=== PATIENT | male | born 1955 ===

== ENCOUNTER 2016-11-12 17:34 | Emergency (ER) | payer SELFPAY ==
[2016-11-12 17:41] VITALS: BP 153/97; PULSE 101; RESP 18; TEMP 98.3; O2SAT 99
--- NOTE | 2016-11-12 20:27 | ED PDOC ---
HPI: Abdomen Time Seen by Provider: 11/12/16 19:41 Chief Complaint (Nursing): Abdominal Pain Chief Complaint (Provider): Abdominal Pain History Per: Patient History/Exam Limitations: no limitations Onset/Duration Of Symptoms: Days (x2 weeks) Current Symptoms Are (Timing): Constant Context: Travel (went to [facility] in September) Location Of Pain/Discomfort: Diffuse Exacerbating Factors: Food (pain worsens when he eats or drinks) Additional Complaint(s): 19:41 Kenan Hoffmann is a 61 year old male with a history of hypertension, diabetes, and hyperlipidemia that presents the the ED with a chief complaint of diffuse, constant abdominal pain that he has been experiencing for the past two weeks. Patient states that he developed a sore throat, chills, and a fever last night, and that he has experienced weakness and decreased appetite since this morning, although prior to this morning his appetite has been normal. He reports that he has not taken any medication for his pain, and that he goes to [facility]. Patient denies any diarrhea constipation, melena, or hematochezia. His social history includes no smoking or drubs, but he does report that he drinks alcohol occasionally. Of Note: Patient traveled to [facility] for vacation in September, during which he states that he drank more alcohol than he typically does. Past Medical History Reviewed: Historical Data, Nursing Documentation, Vital Signs Vital Signs: Last Vital Signs Temp 98.3 F 11/12/16 17:38 Pulse 101 H 11/12/16 17:38 Resp 18 11/12/16 17:38 BP 153/97 H 11/12/16 17:38 Pulse Ox 99 11/12/16 23:29 - Medical History PMH: Diabetes, HTN, Hypercholesterolemia Denies: HIV, Chronic Kidney Disease - Family History Family History: States: Diabetes, Hypertension - Social History Current smoker - smoking cessation education provided: No Alcohol: Occasional Drugs: Denies - Immunization History Hx Tetanus Toxoid Vaccination: No Hx Influenza Vaccination: Yes Hx Pneumococcal Vaccination: No - Home Medications Home Medications: Ambulatory Orders Medication Instructions Recorded Aspirin [Aspirin Chewable] 81 mg PO DAILY 02/16/16 Atorvastatin Calcium [Lipitor] 10 mg PO DAILY 02/16/16 Lisinopril [Zestril] 10 mg PO ACBL 02/16/16 MetFORMIN [glucOPHAGE] 1,000 mg PO BID 02/16/16 Omeprazole [Prilosec] 40 mg PO DAILY 02/16/16 Amoxicillin/Clavulanate [Augmentin 1 tab PO BID #14 tab 11/12/16 875 MG-125 MG] Dicyclomine [Bentyl] 20 mg PO BID PRN #30 tab 11/12/16 - Allergies Allergies/Adverse Reactions: Allergies Allergy/AdvReac Type Severity Reaction Status Date / Time No Known Allergies Allergy Verified 02/03/15 12:53 Review of Systems ROS Statement: Except As Marked, All Systems Reviewed And Found Negative Constitutional: Positive for: Fever, Chills, Weakness, Other (decreased appetite , mylagias) ENT: Positive for: Nose Discharge (mild), Throat Pain (sore throat) Respiratory: Negative for: Cough Gastrointestinal: Positive for: Abdominal Pain. Negative for: Diarrhea, Constipation, Melena, Hematochezia Physical Exam - Physical Exam Appears: Positive for: Non-toxic, In Acute Distress (in mild painful distress, otherwise well-appearing) Head Exam: Positive for: ATRAUMATIC, NORMOCEPHALIC Skin: Positive for: Warm, Dry Eye Exam: Positive for: EOMI, PERRL ENT: Positive for: Tonsillar Exudate, Tonsillar Swelling (tonsils bilaterally enlarged), Other (tonsils erythematous, moist mucous membranes) Neck: Positive for: Painless ROM, Supple, Trachea Midline Cardiovascular/Chest: Positive for: Regular Rate, Rhythm. Negative for: Murmur Respiratory: Positive for: Normal Breath Sounds. Negative for: Wheezing Gastrointestinal/Abdominal: Positive for: Soft, Tenderness (mild tenderness to palpation), Other (negative Peña's and McBurney's point tenderness). Negative for: Mass, Guarding, Rebound Back: Positive for: Normal Inspection. Negative for: L CVA Tenderness, R CVA Tenderness Extremity: Positive for: Normal ROM. Negative for: Pedal Edema, Deformity Lymphatic: Negative for: Adenopathy (no palpable lymph adenopathy) Neurologic/Psych: Positive for: Alert, Oriented (x3). Negative for: Motor/ Sensory Deficits - Laboratory Results Result Diagrams: 11/12/16 20:40 11/12/16 20:40 - ECG O2 Sat by Pulse Oximetry: 99 (RA) Pulse Ox Interpretation: Normal Medical Decision Making Medical Decision Makin:05 Initial Impression: Tonsillitis and Abdominal Pain, DDx include but not limited to: Colitis vs. Pancreatitis vs. Enteritis vs. Strep vs. Infection vs. UTI Initial Plan: * CT A/P with IV Contrast * CMP * CBC * Blood culture * Glucose * POC * Lipase * Magnesiuim * Phosphorous * Urine dip * Flu Swab * Rapid Strep * Tylenol 975 mg PO * Toradol 15 mg IV * Reevaluation * EXAM: CT Abdomen and Pelvis With Intravenous Contrast. CLINICAL HISTORY: 61 years old, male; Pain; Abdominal pain; Generalized; Additional info: Abd pain TECHNIQUE: Axial computed tomography images of the abdomen and pelvis with intravenous contrast. This CT exam was performed using one or more of the following dose reduction techniques : automated exposure control, adjustment of the mA and/or kV according to patient size, and/ or use of iterative reconstruction technique. Coronal and sagittal reformatted images were created and reviewed. CONTRAST: 95 mL of [id number] administered intravenously. COMPARISON: No relevant prior studies available. FINDINGS: Lower thorax: No acute findings. ABDOMEN: Liver: Mild fatty infiltration. Gallbladder and bile ducts: Gallstones. No ductal dilation. Pancreas: No ductal dilation. No mass. Spleen: No splenomegaly. Adrenals: No mass. Kidneys and ureters: No mass. No hydronephrosis. Stomach and bowel: No definite mural thickening. No obstruction. Appendix: Normal caliber. No inflammation. PELVIS: Bladder: Unremarkable. Reproductive: Mildly enlarged prostate. ABDOMEN and PELVIS: Intraperitoneal space: No significant fluid collection. No free air. Bones/joints: Degenerative changes of hips and spine. No acute fracture. Soft tissues: Unremarkable. Vasculature: Minimal atherosclerotic disease of aorta. No abdominal aortic aneurysm. Lymph nodes: No pathologically enlarged lymph nodes. IMPRESSION: 1. Cholelithiasis. 2. Incidental/non-acute findings are described above. Thank you for allowing us to participate in the care of your patient. Dictated and Authenticated by: Julián Sanchez MD 11/12/2016 11:18 PM Eastern Time ([place] & [place]) Scribe Attestation: Documented by Emy Weiss, acting as a scribe for Renuka Hernandez MD. Provider Scribe Attestation: All medical record entries made by the Scribe were at my direction and personally dictated by me. I have reviewed the chart and agree that the record accurately reflects my personal performance of the history, physical exam, medical decision making, and the department course for this patient. I have also personally directed, reviewed, and agree with the discharge instructions and disposition. Disposition - Clinical Impression Clinical Impression: Tonsillitis, Cholelithiasis, Abdominal pain Counseled Patient/Family Regarding: Studies Performed, Diagnosis, Need For Followup, Rx Given - Disposition Referrals: [facility] [place] [Outside] (CONTINUE DIAZ EVALUACIONES CON GASTROENTEROLOGO) Disposition: Routine/Home Disposition Time: 23:00 Condition: STABLE Additional Instructions: HOANG MEDICAMENTOS A RECETO HOANG TYLENOL O ADVIL PARA DOLOR O FIEBRE Prescriptions: Amoxicillin/Clavulanate [Augmentin 875 MG-125 MG] 1 tab PO BID #14 tab Dicyclomine [Bentyl] 20 mg PO BID PRN #30 tab PRN Reason: abdominal pain Instructions: Gallstones (ED), Tonsillitis (ED), Abdominal Pain (ED) Print Language: MOLDOVAN
[2016-11-12 21:08] LABS: BASO # 0.1 K/uL (0.0-0.2); BASO % 0.7 % (0.0-2.0); EOS % 0.1 % (0.0-4.0); HEMATOCRIT 41.9 % (35.0-51.0); LYMPH # 0.9 K/uL (1.0-4.3); LYMPH % 7.6 % (20.0-40.0); MEAN CELL VOLUME 90.2 fl (80.0-94.0); MEAN CORPUSCULAR HEMOGLOBIN 30.4 pg (27.0-31.0); MEAN CORPUSCULAR HGB CONC 33.8 g/dL (33.0-37.0); MEAN PLATELET VOLUME 8.4 fl (7.2-11.7); MONO # 0.7 K/uL (0.0-0.8); MONO % 5.9 % (0.0-10.0); NEUT # 10.3 K/uL (1.8-7.0); NEUT % 85.7 % (50.0-75.0); PLATELET COUNT 279 K/uL (130-400); RED CELL DISTRIBUTION WIDTH 12.3 % (11.5-14.5)
[2016-11-12 21:24] LABS: ALB/GLOB RATIO 1.2 (1.0-2.1); ALKALINE PHOSPHATASE 109 U/L (38-126); ALT/SGPT 35 U/L (21-72); AST/SGOT 32 U/L (17-59); BILIRUBIN,TOTAL 0.8 mg/dl (0.2-1.3); BLOOD UREA NITROGEN 13 mg/dl (9-20); CALCIUM 9.6 mg/dL (8.4-10.2); CARBON DIOXIDE 24 mmol/L (22-30); CHLORIDE 96 mmol/L (98-107); GFR AFRICAN-AMERICAN > 60; GLUCOSE,RANDOM 118 mg/dL (75-110); LIPASE 103 U/L (23-300); PHOSPHOROUS 2.7 mg/dl (2.5-4.5); POTASSIUM 4.3 MMOL/L (3.6-5.0); SODIUM 141 mmol/l (132-148); TOTAL PROTEIN 8.5 G/DL (6.3-8.2)
[2016-11-12 22:10] LABS: NEUTROPHIL 82 % (42-75); TOTAL CELLS COUNTED 100
[2016-11-12 22:18] LABS: MAGNESIUM 1.8 MG/DL (1.6-2.3)
[2016-11-12] MEDS ORDERED: Iohexol 300 100 ML IJ ONE (22:27)
[2016-11-12] MEDS ORDERED: Sodium Chloride 0.9% 50 ML IV ONE (22:27)
--- NOTE | 2016-11-12 23:18 | CT ---
EXAM: CT Abdomen and Pelvis With Intravenous Contrast. CLINICAL HISTORY: 61 years old, male; Pain; Abdominal pain; Generalized; Additional info: Abd pain TECHNIQUE: Axial computed tomography images of the abdomen and pelvis with intravenous contrast. This CT exam was performed using one or more of the following dose reduction techniques: automated exposure control, adjustment of the mA and/or kV according to patient size, and/or use of iterative reconstruction technique. Coronal and sagittal reformatted images were created and reviewed. CONTRAST: 95 mL of [id number] administered intravenously. COMPARISON: No relevant prior studies available. FINDINGS: Lower thorax: No acute findings. ABDOMEN: Liver: Mild fatty infiltration. Gallbladder and bile ducts: Gallstones. No ductal dilation. Pancreas: No ductal dilation. No mass. Spleen: No splenomegaly. Adrenals: No mass. Kidneys and ureters: No mass. No hydronephrosis. Stomach and bowel: No definite mural thickening. No obstruction. Appendix: Normal caliber. No inflammation. PELVIS: Bladder: Unremarkable. Reproductive: Mildly enlarged prostate. ABDOMEN and PELVIS: Intraperitoneal space: No significant fluid collection. No free air. Bones/joints: Degenerative changes of hips and spine. No acute fracture. Soft tissues: Unremarkable. Vasculature: Minimal atherosclerotic disease of aorta. No abdominal aortic aneurysm. Lymph nodes: No pathologically enlarged lymph nodes. IMPRESSION: 1. Cholelithiasis. 2. Incidental/non-acute findings are described above.
[2016-11-12] MEDS ORDERED: cefTRIAXone (Rocephin) 1 gm Inj ONE (23:30)
== END 2016-11-12 23:46 | disposition home or self-care (01) ==
LOC: H.ER 17:34
DX: K80.20 Calculus of gallbladder without cholecystitis without obstruction (principal); J03.90 Acute tonsillitis, unspecified; E11.9 Type 2 diabetes mellitus without complications; E78.00 Pure hypercholesterolemia, unspecified; I10 Essential (primary) hypertension; Z79.82 Long term (current) use of aspirin; Z79.84 Long term (current) use of oral hypoglycemic drugs

== ENCOUNTER 2017-02-12 06:05 | Day surgery (SDC) | payer SELFPAY ==
[2017-02-05 08:55] VITALS: BMI 33.4
[2017-02-12] MEDS ORDERED: Lactated Ringer's 1,000 ML IV ONE ×3 (07:04→09:24)
[2017-02-12] MEDS ORDERED: Lidocaine 1% Inj (20ml) ONE (07:21)
[2017-02-12] MEDS ORDERED: Bupivacaine 0.5% Inj(30mL) ONE (07:21)
[2017-02-12] MEDS ORDERED: Succinylcholine 200 mg/10 ml Inj IV ONE (07:23)
[2017-02-12] MEDS ORDERED: Propofol 10 mg/ml Inj (20 ML) ONE (07:23)
--- NOTE | 2017-02-12 07:46 | CP.SDSHP ---
Same Day Surgery H & P - History Proposed Procedure: Laparoscopic Cholecystectomy Pre-Op Diagnosis: Cholelithiasis - Previous Medical/Surgical History Cardiac: Hypertension Endocrine/Metabolic: Diabetes - Allergies Allergies: Allergies No Known Allergies Allergy (Verified 02/12/17 06:30) - Physical Exam General Appearance: NAD, WNL Vital Signs: Vital Signs 02/12/17 06:44 Temperature 98.4 F Pulse Rate 66 Respiratory 18 Rate Blood Pressure 117/86 O2 Sat by Pulse 96 Oximetry Mental Status: Alert & Oriented x3 Neuro: WNL Heart: WNL Lungs: WNL GI: WNL - {Optional Preform as Required} Abdomen: WNL - Impression Impression: 61 yo M w/ symptomatic Cholelithaisis here for Lap Annamarie Pt. Evaluated Today:Candidate for Anesthesia & Procedure: Yes - Date & Time Date: 02/12/17 Time: 07:44 Short Stay Discharge - Short Stay Discharge Admitting Diagnosis/Reason for Visit: K80.2 Disposition: HOME/ ROUTINE Medications: oxyCODONE/Acetaminophen [Percocet 5/325 mg Tab] 1 ea PO Q4H PRN #10 tab PRN Reason: Pain, Moderate (4-7) Referrals: Allyson Valles MD [Primary Care Provider] - Jose Roberto Telles MD [Staff Provider] - Follow-up: 1 week Additional Instructions (Diet, Activity): Resume regular diet. Light activities but no heavy lifting >10lbs for 4weeks.
[2017-02-12] MEDS ORDERED: Rocuronium 10 mg/ml (5 ml) ONE (07:52)
[2017-02-12] MEDS ORDERED: Desflurane Inhalation Anesthetic Liq (240 ml) ONE (08:02)
[2017-02-12] MEDS ORDERED: ePHEDrine 50 mg/ml Inj ONE (08:07)
[2017-02-12] MEDS ORDERED: Neostigmine Methylsulfate 2 MG/2 ML ML IV ONE (08:43)
[2017-02-12] MEDS ORDERED: Neostigmine Methylsulfate 3mg/3ml Syringe IV ONE (08:43)
--- NOTE | 2017-02-12 09:27 | PCM.SURG1 ---
Surgeon's Initial Post Op Note - Surgeon's Notes Surgeon: Dr. Telles Immigration Manager: Dr. Mathew PGY2, Dr Morfin PGY1 Type of Anesthesia: General Endo Anesthesia Administered By: Thompson Pre-Operative Diagnosis: Cholelithiasis Operative Findings: same Post-Operative Diagnosis: same Operation Performed: Laparoscopic Cholecystectomy Specimen/Specimens Removed: gallbladder Estimated Blood Loss: EBL {In ML}: 20 Blood Products Given: N/A Drains Used: No Drains Post-Op Condition: Good Date of Surgery/Procedure: 02/12/17 Time of Surgery/Procedure:
[2017-02-12] MEDS ORDERED: Oxycodone/Acetaminophen 5/325 mg Tab PO PRN (09:29)
[2017-02-12] MEDS ORDERED: Oxycodone/Acetaminophen 5/325 mg Tab PO ONE (10:00)
[2017-02-12] MEDS: HYDROmorphone 0.5 mg/0.5 ml ISec IVP PRN ×2 (10:00→10:07)
[2017-02-12 13:38] VITALS: RESP 18; O2SAT 98
[2017-02-12 15:20] VITALS: BP 123/77; PULSE 83; TEMP 98.4
--- NOTE | 2017-02-13 11:02 | CP.SDSHP ---
Same Day Surgery H & P - Allergies Allergies: Allergies No Known Allergies Allergy (Verified 02/12/17 06:30) - Current Medications Current Medications: Home Medication List Medication Instructions Recorded Confirmed Type oxyCODONE/Acetaminophen [Percocet 1 ea PO Q4H PRN #10 tab 02/12/17 Rx 5/325 mg Tab] Short Stay Discharge - Short Stay Discharge Admitting Diagnosis/Reason for Visit: K80.2 Disposition: HOME/ ROUTINE Medications: oxyCODONE/Acetaminophen [Percocet 5/325 mg Tab] 1 ea PO Q4H PRN #10 tab PRN Reason: Pain, Moderate (4-7) Referrals: Jose Roberto Telles MD [Staff Provider] - Allyson Valles MD [Primary Care Provider] - Follow-up: [facility] 2 weeks Additional Instructions (Diet, Activity): Resume regular diet. Light activities but no heavy lifting >10lbs for 4weeks. Call Dr. Telles's office today to schedule an appointment in 2 weeks Progress Note/Discharge Note with Instructions: Abdomen bengin, tolerating po. VSS Stable postop
--- NOTE | 2017-03-19 12:06 | OP ---
PROCEDURE DATE: 02/12/2017 SURGEON: Dr. Telles. PUBLIC SERVICE ADMINISTRATOR: . ANESTHESIA: General, Dr. Mackay. PREOPERATIVE DIAGNOSIS: Cholelithiasis. POSTOPERATIVE DIAGNOSIS: Cholelithiasis. PROCEDURE: Laparoscopic cholecystectomy. DESCRIPTION OF PROCEDURE: With the patient in the supine position, under adequate general anesthesia, the abdomen was prepped and draped in the usual sterile manner. Veress needle puncture was performed at the umbilicus with insufflation to 15 cm water pressure of CO2 and a 10 mm laparoscopic trochar was inserted via an infraumbilical incision. Under direct vision, additional trocars were inserted in the epigastrium and right costal margin. The gallbladder was visualized, it was not acutely inflamed. The gallbladder fundus was grasped and elevated. The infundibulum was grasped and retracted laterally. The cystic duct was identified and dissected. It was cleared down towards the common bile duct and viewed anteriorly and posteriorly. The cystic duct was then triply clipped and divided; anterior and posterior branches of the cystic artery were identified and dissected and then triply clipped and divided and the gallbladder was dissected free of the liver bed using electrocautery. The liver bed was inspected for hemostasis and the dissection was completed. The gallbladder was placed in a specimen retrieval bag and removed via the umbilical port site. Multiple films were identified. The right upper quadrant was irrigated and suctioned. Pneumoperitoneum was released and the trocars were removed. The umbilical port site was closed with a figure of eight fascial suture of 0-Vicryl. All incisions were closed with 4-0 Monocryl subcuticular sutures and Dermabond. The patient tolerated the procedure well and transferred to the recovery room in stable condition. Estimated blood loss for the procedure was 20 mL. Jose Roberto Telles MD MARTINE
== END 2017-02-12 15:20 | disposition home or self-care (01) ==
LOC: H.OPSURG 06:05
PROVIDERS: ATTEND Specialist
DX: K80.20 Calculus of gallbladder without cholecystitis without obstruction (principal); I10 Essential (primary) hypertension

== ENCOUNTER 2017-05-01 13:32 | Emergency (ER) | payer MEDICAID, SELFPAY ==
[2017-05-01 13:32] VITALS: BMI 33.4
[2017-05-01 14:01] VITALS: BP 136/98; PULSE 86; RESP 16; TEMP 97.9; O2SAT 100
--- NOTE | 2017-05-01 14:34 | ED PDOC ---
HPI: Headache Time Seen by Provider: 05/01/17 14:05 Chief Complaint (Nursing): Headache Chief Complaint (Provider): headache History Per: Patient History/Exam Limitations: no limitations Onset/Duration Of Symptoms: Days (4), Persistent, Other Quality: Pressure Associated Symptoms: Blurred Vision (intermittently), Nausea. denies: Photophobia, Vomiting Additional Complaint(s): Headache constant pressure-like, diffuse, since Saturday morning, drinking alcohol more than usual the night before. Pain persists and associated with nausea this morning. Occasionally feels like his vision is blurred. Taking motrin with minimal relief. Intensity has been the same since onset. Denies fever, neck pain/stiffness, focal weakness, unsteady gait, trauma, photophobia, thunderclap headache. PMD [facility] Past Medical History Vital Signs: Last Vital Signs Temp 97.9 F 05/01/17 13:57 Pulse 86 05/01/17 13:57 Resp 16 05/01/17 13:57 BP 136/98 H 05/01/17 13:57 Pulse Ox 100 05/01/17 13:57 - Medical History PMH: Arthritis, Diabetes, HTN, Hypercholesterolemia Denies: HIV, Chronic Kidney Disease - Surgical History Surgical History: Cholecystectomy - Family History Family History: States: Diabetes, Hypertension - Social History Current smoker - smoking cessation education provided: No Alcohol: Social (1/month) Drugs: Denies - Immunization History Hx Tetanus Toxoid Vaccination: No Hx Influenza Vaccination: Yes Hx Pneumococcal Vaccination: No - Home Medications Home Medications: Ambulatory Orders Medication Instructions Recorded Atorvastatin Calcium [Lipitor] 10 mg PO DAILY 02/16/16 Lisinopril [Zestril] 10 mg PO ACBL 02/16/16 MetFORMIN [glucoPHAGE] 1,000 mg PO BID 02/16/16 oxyCODONE/Acetaminophen [Percocet 1 ea PO Q4H PRN #10 tab 02/12/17 5/325 mg Tab] Ondansetron ODT [Zofran ODT] 1 odt PO Q6 PRN #20 odt 05/01/17 - Allergies Allergies/Adverse Reactions: Allergies Allergy/AdvReac Type Severity Reaction Status Date / Time No Known Allergies Allergy Verified 05/01/17 13:57 Review of Systems ROS Statement: Except As Marked, All Systems Reviewed And Found Negative Constitutional: Negative for: Fever, Weakness, Malaise Eyes: Positive for: Vision Change ENT: Negative for: Nose Pain, Nose Congestion Gastrointestinal: Positive for: Nausea. Negative for: Vomiting, Abdominal Pain Neurological: Positive for: Headache. Negative for: Weakness, Numbness, Incoordination, Confusion, Seizures, Altered Mental Status, Dizziness Physical Exam - Reviewed Nursing Documentation Reviewed: Yes Vital Signs Reviewed: Yes - Physical Exam Appears: Positive for: Well, No Acute Distress Head Exam: Positive for: ATRAUMATIC, NORMOCEPHALIC Skin: Positive for: Warm, Dry Eye Exam: Positive for: EOMI, PERRL. Negative for: Conjunctival injection ENT: Negative for: Pharyngeal Erythema, Tonsillar Exudate Neck: Positive for: Painless ROM, Supple Cardiovascular/Chest: Positive for: Regular Rate, Rhythm, Chest Non Tender. Negative for: Murmur Respiratory: Positive for: Normal Breath Sounds. Negative for: Wheezing, Respiratory Distress Gastrointestinal/Abdominal: Positive for: Bowel Sounds, Soft. Negative for: Tenderness Back: Positive for: Normal Inspection. Negative for: L CVA Tenderness, R CVA Tenderness, Vertebral Tenderness Extremity: Positive for: Normal ROM. Negative for: Pedal Edema Neurologic/Psych: Positive for: Alert, staff scientist II-XII (grossly intact), Oriented (x3 ), Cerebellar Tests (normal), Gait (normal). Negative for: Motor/Sensory Deficits, Aphasia, Facial Droop - Laboratory Results Result Diagrams: 05/01/17 14:22 05/01/17 14:22 Interpretation Of Abn Labs: No emergently significant lab abnormalities - ECG ECG: Positive for: Interpreted By Me ECG Rhythm: Positive for: Normal QRS, Normal ST Segment O2 Sat by Pulse Oximetry: 100 Pulse Ox Interpretation: Normal - Progress ED Course And Treament: Accession No. : [id number] Patient Name / ID : LYLE HUGO / [id number] Exam Date : 05/01/2017 14:57:26 ( Approved ) Study Comment : Sex / Age : M / 61Y Creator : Nicolas Agee MD Dictator : Nicolas Agee MD Logging Tractor Operator : Television Cabinet Finisher : Nicolas Agee MD Approver2 : Report Date : 05/01/2017 15:17:24 My Comment : PROCEDURE: CT HEAD WITHOUT CONTRAST. HISTORY: headache nausea h/o htn/dm COMPARISON: None available. TECHNIQUE: Axial computed tomography images were obtained through the head/brain without intravenous contrast. Radiation dose: Total exam DLP = 866 mGy-cm. This CT exam was performed using one or more of the following dose reduction techniques: Automated exposure control, adjustment of the mA and/or kV according to patient size, and/or use of iterative reconstruction technique. FINDINGS: HEMORRHAGE: No intracranial hemorrhage. BRAIN: No mass effect or edema. No atrophy or chronic microvascular ischemic changes. VENTRICLES: Unremarkable. No hydrocephalus. CALVARIUM: Unremarkable. PARANASAL SINUSES: Unremarkable as visualized. No significant inflammatory changes. MASTOID AIR CELLS: Unremarkable as visualized. No inflammatory changes. OTHER FINDINGS: None. IMPRESSION: Normal CT of the Head. Re-evaluation Time: 16:00 Condition: Improved Disposition - Clinical Impression Clinical Impression: Headache Counseled Patient/Family Regarding: Studies Performed, Diagnosis, Need For Followup, Rx Given - Disposition Referrals: [facility] [Outside] [facility] [Outside] ([facility] [place] [facility]) Disposition: Routine/Home Disposition Time: 16:00 Condition: IMPROVED Prescriptions: Ondansetron ODT [Zofran ODT] 1 odt PO Q6 PRN #20 odt PRN Reason: Nausea/Vomiting Instructions: Acute Headache (ED) Print Language: CITIZEN OF [place]
[2017-05-01 14:43] LABS: PARTIAL THROMBOPLASTIN TIME 31.6 Seconds (25.6-37.1)
[2017-05-01 15:00] LABS: ALB/GLOB RATIO 1.4 (1.0-2.1); ALCOHOL SERUM < 10 mg/dl (0-10); ALKALINE PHOSPHATASE 101 U/L (38-126); ALT/SGPT 53 U/L (21-72); AST/SGOT 28 U/L (17-59); BILIRUBIN,TOTAL 0.4 mg/dl (0.2-1.3); BLOOD UREA NITROGEN 10 mg/dl (9-20); CALCIUM 9.3 mg/dL (8.4-10.2); CARBON DIOXIDE 24 mmol/L (22-30); CHLORIDE 104 mmol/L (98-107); GFR AFRICAN-AMERICAN > 60; GLUCOSE,RANDOM 159 mg/dL (75-110); LIPASE 100 U/L (23-300); MAGNESIUM 1.9 MG/DL (1.6-2.3); PHOSPHOROUS 2.8 mg/dl (2.5-4.5); POTASSIUM 4.4 MMOL/L (3.6-5.0); SODIUM 141 mmol/l (132-148); TOTAL PROTEIN 7.9 G/DL (6.3-8.2)
--- NOTE | 2017-05-01 15:18 | CT ---
PROCEDURE: CT HEAD WITHOUT CONTRAST. HISTORY: headache nausea h/o htn/dm COMPARISON: None available. TECHNIQUE: Axial computed tomography images were obtained through the head/brain without intravenous contrast. Radiation dose: Total exam DLP = 866 mGy-cm. This CT exam was performed using one or more of the following dose reduction techniques: Automated exposure control, adjustment of the mA and/or kV according to patient size, and/or use of iterative reconstruction technique. FINDINGS: HEMORRHAGE: No intracranial hemorrhage. BRAIN: No mass effect or edema. No atrophy or chronic microvascular ischemic changes. VENTRICLES: Unremarkable. No hydrocephalus. CALVARIUM: Unremarkable. PARANASAL SINUSES: Unremarkable as visualized. No significant inflammatory changes. MASTOID AIR CELLS: Unremarkable as visualized. No inflammatory changes. OTHER FINDINGS: None. IMPRESSION: Normal CT of the Head.
[2017-05-01 16:07] LABS: BASO # 0.1 K/uL (0.0-0.2); BASO % 0.7 % (0.0-2.0); EOS # 0.1 K/uL (0.0-0.7); EOS % 0.8 % (0.0-4.0); HEMATOCRIT 43.1 % (35.0-51.0); LYMPH # 1.9 K/uL (1.0-4.3); LYMPH % 28.2 % (20.0-40.0); MEAN CELL VOLUME 90.2 fl (80.0-94.0); MEAN CORPUSCULAR HEMOGLOBIN 29.9 pg (27.0-31.0); MEAN CORPUSCULAR HGB CONC 33.2 g/dL (33.0-37.0); MEAN PLATELET VOLUME 8.7 fl (7.2-11.7); MONO # 0.6 K/uL (0.0-0.8); MONO % 8.6 % (0.0-10.0); NEUT # 4.2 K/uL (1.8-7.0); NEUT % 61.7 % (50.0-75.0); NRBC % 0.1 % (0.0-0.0); RED CELL DISTRIBUTION WIDTH 13.3 % (11.5-14.5); WHITE BLOOD COUNT 6.9 K/uL (4.8-10.8)
--- NOTE | 2017-05-02 08:32 | CARD ---
APPROVED REPORT EKG Measurement Heart [id number] <Conclusion> Normal sinus rhythm Normal ECG
== END 2017-05-01 16:55 | disposition home or self-care (01) ==
LOC: H.ER 13:32
DX: R51 Headache (principal); E11.9 Type 2 diabetes mellitus without complications; I10 Essential (primary) hypertension; Z79.84 Long term (current) use of oral hypoglycemic drugs
CPT/HCPCS: 70450; 80053; 80320; 82140; 82948; 83690; 83735; 84100; 84484; 85025; 85610; 85730; 93005; 96374; 99283; J2405

== ENCOUNTER 2017-07-12 15:31 | Emergency (ER) | payer SELFPAY ==
[2017-07-12 15:32] VITALS: BMI 33.4
[2017-07-12 15:46] VITALS: BP 115/75; PULSE 77; RESP 20; TEMP 98.5; O2SAT 98
--- NOTE | 2017-07-12 16:06 | ED PDOC ---
Upper Extremity Pain/Injury Time Seen by Provider: 07/12/17 15:43 Chief Complaint (Nursing): Upper Extremity Problem/Injury Chief Complaint (Provider): Upper extremity problem History Per: Patient History/Exam Limitations: no limitations Onset/Duration Of Symptoms: Days (x5) Current Symptoms Are (Timing): Still Present Quality: "Pain" Severity: Moderate Pain Scale Rating Of: 9 Exacerbating Factor(s): Strenuous Use Of Affected Area, Movement Additional Complaint(s): Kenan Hoffmann is a 61 year old male, with a past medical history of diabetes , arthritis, and hypertension, who presents to the emergency department complaining of right shoulder pain onset for 5 days. Patient states the pain is worst with movement. He reports doing a lot of heavy lifting at work. Patient hasn't been able to sleep due to pain. He took x3 Motrin at 8am this morning with no relief of pain. He denies any trauma, fever or chills. No further medical complaints. PMD: None provided. Past Medical History Reviewed: Historical Data, Nursing Documentation, Vital Signs Vital Signs: Last Vital Signs Temp 98.5 F 07/12/17 15:44 Pulse 77 07/12/17 15:44 Resp 20 07/12/17 15:44 BP 115/75 07/12/17 15:44 Pulse Ox 98 07/12/17 15:44 - Medical History PMH: Arthritis, Diabetes, HTN, Hypercholesterolemia Denies: HIV, Chronic Kidney Disease - Surgical History Surgical History: Cholecystectomy - Family History Family History: States: Diabetes, Hypertension - Immunization History Hx Tetanus Toxoid Vaccination: No Hx Influenza Vaccination: Yes Hx Pneumococcal Vaccination: No - Home Medications Home Medications: Ambulatory Orders Medication Instructions Recorded Atorvastatin Calcium [Lipitor] 10 mg PO DAILY 02/16/16 Lisinopril [Zestril] 10 mg PO ACBL 02/16/16 MetFORMIN [glucoPHAGE] 1,000 mg PO BID 02/16/16 oxyCODONE/Acetaminophen [Percocet 1 ea PO Q4H PRN #10 tab 02/12/17 5/325 mg Tab] Ondansetron ODT [Zofran ODT] 1 odt PO Q6 PRN #20 odt 05/01/17 traMADol [Ultram] 50 mg PO Q4 #10 tab 07/12/17 - Allergies Allergies/Adverse Reactions: Allergies Allergy/AdvReac Type Severity Reaction Status Date / Time No Known Allergies Allergy Verified 05/01/17 13:57 Review of Systems ROS Statement: Except As Marked, All Systems Reviewed And Found Negative Constitutional: Negative for: Fever, Chills, Other (trauma) Musculoskeletal: Positive for: Shoulder Pain (right), Arm Pain (right) Physical Exam - Reviewed Nursing Documentation Reviewed: Yes Vital Signs Reviewed: Yes - Physical Exam Appears: Positive for: Well, Non-toxic, No Acute Distress Head Exam: Positive for: ATRAUMATIC, NORMAL INSPECTION, NORMOCEPHALIC Skin: Positive for: Normal Color, Warm, Dry Eye Exam: Positive for: EOMI, Normal appearance, PERRL Neck: Positive for: Normal, Painless ROM, Supple Respiratory: Negative for: Respiratory Distress Extremity: Positive for: Other (tenderness to lateral aspect of shoulder). Negative for: Normal ROM (difficult abduction due to pain) Neurologic/Psych: Positive for: Alert, Oriented - ECG O2 Sat by Pulse Oximetry: 98 (RA) Pulse Ox Interpretation: Normal Medical Decision Making Medical Decision Making: Initial Impression: Right shoulder pain Initial Plan: --Toradol 30 mg IM --Shoulder right [RAD] --reevaluation Shoulder XR: NAd, as read by JOSH Pt educated on results and demonstrated full understanding Shoulder sling placed Give Ortho referral ~ Scribe Attestation: Documented by Shaji Cadet, acting as a scribe for Renuka Cano PA-C. Provider Scribe Attestation: All medical record entries made by the Scribe were at my direction and personally dictated by me. I have reviewed the chart and agree that the record accurately reflects my personal performance of the history, physical exam, medical decision making, and the department course for this patient. I have also personally directed, reviewed, and agree with the discharge instructions and disposition. Disposition - Clinical Impression Clinical Impression: Shoulder pain - Patient ED Disposition Is Patient to be Admitted: No - Disposition Referrals: Asael Sandoval MD [Staff Provider] - Disposition: Routine/Home Disposition Time: 17:32 Condition: STABLE Prescriptions: traMADol [Ultram] 50 mg PO Q4 #10 tab Instructions: Shoulder Sprain (ED), Arthralgia (ED) Forms: [facility] ([place]) - POA Present On Arrival: None
--- NOTE | 2017-07-12 17:40 | RAD ---
PROCEDURE: Radiographs of the Right Shoulder HISTORY: pain on exam COMPARISON: No prior. FINDINGS: BONES: Normal. No fracture. JOINTS: Normal. Glenohumeral and acromioclavicular joints preserved. No osteoarthritis. SOFT TISSUES: Normal. OTHER FINDINGS: None. IMPRESSION: No evidence of acute fracture or dislocation.
== END 2017-07-12 17:49 | disposition home or self-care (01) ==
LOC: H.ER 15:31
DX: M25.511 Pain in right shoulder (principal); E11.9 Type 2 diabetes mellitus without complications; Z79.84 Long term (current) use of oral hypoglycemic drugs; I10 Essential (primary) hypertension; E78.00 Pure hypercholesterolemia, unspecified
CPT/HCPCS: 73030; 96372; 99283; J1885